=== PATIENT | female | born 1970 | race Two or more races ===

== ENCOUNTER → 2025-01-03 | Outpatient (CLI) | payer BC, SELFPAY ==
--- NOTE | 2025-01-03 09:45 | XR_ITS ---
Examination: Abdomen sonogram, complete Date and time of exam: January 03, 2025 1038 hrs. Indications: Diagnosis of hepatomegaly 8 years ago. Technique: Multiple real-time grayscale transabdominal sonographic images of the abdomen have been obtained. Findings: Normal gallbladder Normal common bile duct 0.2 cm Pancreatic head 2.4 cm Aorta not enlarged. Liver 15.5 cm fatty infiltration benign small cysts Normal hepatopedal portal venous flow Patent IVC Right kidney 10.8 cm cortex 1.4 cm Left kidney 10.9 cm cortex 1.8 cm Mild bilateral renal parenchymal scar formation No hydronephrosis Spleen 11.0 cm Impression: Normal gallbladder Fatty liver Mild bilateral renal parenchymal scar formation
== END | disposition home or self-care (01) ==
PROVIDERS: PCP Family Medicine; Referring Provider Internal Medicine Gastroenterology; Visit Provider Internal Medicine Gastroenterology
DX: K76.0 Fatty (change of) liver, not elsewhere classified (principal); N28.89 Other specified disorders of kidney and ureter
CPT/HCPCS: 76700